=== PATIENT | male | born 1945 | race African-American/Black ===

== ENCOUNTER 2017-12-08 06:23 | Inpatient (IN) | payer MEDICARE, BC ==
[2017-12-08] VITALS (17 sets, daily range): BP systolic 110–138; BP diastolic 63–83
[~2017-12-08] VITALS: Ht 180.3 cm; Wt 89.1 kg
[~2017-12-08 06:23] MED LIST: AMLO10TA80 PO; ASPI-986 PO; ATOR20TA65 PO; BENA20TA10 PO; ISOS30TA6 PO; NITR0.4T PO; TOPXL5 PO
[2017-12-08] MEDS ORDERED: FENTANYL CITRATE/PF 50MCG/ML 2ML VIAL ONE (08:28)
[2017-12-08] MEDS ORDERED: MIDAZOLAM HCL 2 MG/2 ML VIAL ONE (08:28)
[2017-12-08] MEDS ORDERED: IOHEXOL-300 100 ML BOTTLE ONE (08:33)
[2017-12-08] MEDS ORDERED: IODIXANOL 320MG/ML 100 ML BOTTLE IV ONE ×2 (09:07→09:51)
[2017-12-08] MEDS ORDERED: LIDOCAINE HCL 1% 20ML VIAL (Pyxis) INJ ONE (09:51)
[2017-12-08] MEDS ORDERED: ASPIRIN 325MG TABLET ONE (09:52)
[2017-12-08] MEDS ORDERED: CLOPIDOGREL 75MG TABLET ONE (09:53)
[2017-12-08] MEDS ORDERED: ONDANSETRON HCL 4MG/2ML VIAL IV PRN (10:00)
[2017-12-08] MEDS ORDERED: ACETAMINOPHEN 325MG TABLET PO PRN (10:00)
[2017-12-08] MEDS ORDERED: ATROPINE SULFATE 1MG/10ML SYR IV PRN (10:00)
[2017-12-08] MEDS ORDERED: NICARDIPINE 100MCG/ML 10ML VIAL (CATH LAB) IV ONE (13:55)
[2017-12-08] MEDS ORDERED: NITROGLYCERIN 50MCG/ML 10ML VIAL (CATH LAB) IV ONE (13:55)
[2017-12-08] MEDS ORDERED: HEPARIN SODIUM 1,000 UNIT/1ML VIAL IV ONE (14:50)
[2017-12-09] VITALS (7 sets, daily range): BP systolic 116–153; BP diastolic 69–87
[2017-12-09 07:33] LABS: CHLORIDE 107 mEq/L (98-107)
[2017-12-09 07:42] LABS: BASOPHILS % 0.4 % (0.0-2.0); EOSINOPHILS % 2.2 % (0.0-5.0); HEMATOCRIT. 43.2 % (42.0-52.0); HEMOGLOBIN. 14.8 g/dL (14.0-18.0); MEAN CORPUSCULAR VOLUME 87.6 fL (80.0-94.0); MEAN PLATELET VOLUME 10.1 fl (7.4-10.4); NEUTROPHILS % 59.4 % (40.0-76.0); PLATELET 177 x1000/uL (130-400); RED BLOOD CELL COUNT 4.93 mill/uL (4.7-6.1); RED CELL DISTRIBUTION WIDTH 13.6 % (11.6-14.6)
[2017-12-09] MEDS ORDERED: CLOPIDOGREL 75MG TABLET PO SCH (09:00)
[2017-12-09] MEDS ORDERED: ASPIRIN 325MG TABLET PO SCH (09:00)
== END 2017-12-09 11:34 | disposition home or self-care (01) | DRG 251 ==
LOC: CCL 06:23 → 3WST 06:24
PROVIDERS: ADMIT Specialist; ATTEND Specialist
PROC: 4A023N7 Measurement of Cardiac Sampling and Pressure, Left Heart, Percutaneous Approach (ICD-10-PCS; principal; 2017-12-08)
PROC: B2111ZZ Fluoroscopy of Multiple Coronary Arteries using Low Osmolar Contrast (ICD-10-PCS; 2017-12-08)
PROC: 02703ZZ Dilation of Coronary Artery, One Artery, Percutaneous Approach (ICD-10-PCS; 2017-12-08)
DX: I25.10 Atherosclerotic heart disease of native coronary artery without angina pectoris (principal); E78.5 Hyperlipidemia, unspecified; I11.9 Hypertensive heart disease without heart failure; I25.2 Old myocardial infarction; Z95.5 Presence of coronary angioplasty implant and graft; Z79.899 Other long term (current) drug therapy
CPT/HCPCS: 36415; 80048; 85025; 85347; 92920; 93005; 93454; C1725; C1769; C1887; C1893; J1644; J2250; J3010; J3490; Q9967

== ENCOUNTER 2021-05-23 15:59 | Inpatient (IN) | payer MEDICARE, BC ==
[~2021-05-23] VITALS: Ht 180.3 cm; Wt 87.7 kg
[2021-05-23] VITALS (15 sets, daily range): BP systolic 103–137; BP diastolic 43–87
[~2021-05-23 15:59] MED LIST changes: -ISOS30TA6 PO; +ISOS30TA91 PO
[2021-05-23] MEDS ORDERED: ASPIRIN 325MG TABLET PO ONE (17:15)
[2021-05-23] MEDS ORDERED: NITROGLYCERIN 0.4MG TABLET SL SL PRN (17:15)
[2021-05-23 17:22] LABS: BASOPHILS % 0.2 % (0.0-2.0); EOSINOPHILS % 0.6 % (0.0-5.0); HEMATOCRIT. 44.3 % (42.0-52.0); HEMOGLOBIN. 14.7 g/dL (14.0-18.0); LYMPHOCYTES % 16.4 % (20.0-50.0); MEAN CORPUSCULAR VOLUME 87.3 fL (80.0-94.0); MEAN PLATELET VOLUME 9.4 fl (7.4-10.4); MONOCYTES % 8.2 % (2.0-8.0); NEUTROPHILS % 74.6 % (40.0-76.0); PLATELET 246 x1000/uL (130-400); RED BLOOD CELL COUNT 5.07 mill/uL (4.7-6.1); RED CELL DISTRIBUTION WIDTH 13.7 % (11.6-14.6)
[2021-05-23 17:28] LABS: CHLORIDE 110 mEq/L (98-107)
[2021-05-23 17:30] LABS: INR 1.1; PROTHROMBIN TIME 12.2 sec (9.6-11.0)
[2021-05-23] MEDS ORDERED: FENTANYL CITRATE/PF 50MCG/ML 2ML VIAL IV ONE (17:30)
[2021-05-23 17:31] LABS: ETHANOL BLOOD < 10 mg/dL
[2021-05-23] MEDS ORDERED: IOHEXOL-300 100 ML BOTTLE ONE (17:47)
[2021-05-23] MEDS ORDERED: IODIXANOL 320MG/ML 100 ML BOTTLE IV ONE ×2 (17:47→19:05)
[2021-05-23] MEDS ORDERED: LIDOCAINE HCL 1% 20ML VIAL (Pyxis) INJ ONE (17:47)
[2021-05-23] MEDS ORDERED: MIDAZOLAM HCL 2 MG/2 ML VIAL ONE (17:48)
[2021-05-23] MEDS ORDERED: FENTANYL CITRATE/PF 50MCG/ML 2ML VIAL ONE (17:48)
[2021-05-23] MEDS ORDERED: ATROPINE SULFATE 0.1MG/ML 10ML DISP.SYRIN ONE (18:19)
[2021-05-23] MEDS ORDERED: TICAGRELOR 90 MG TABLET PO ONE (19:05)
[2021-05-23] MEDS ORDERED: CARVEDILOL 3.125 MG TABLET PO NR (19:30)
[2021-05-23] MEDS ORDERED: ACETAMINOPHEN 325MG TABLET PO PRN (19:30)
[2021-05-23] MEDS ORDERED: LISINOPRIL 2.5MG TABLET PO NR (19:30)
[2021-05-23] MEDS ORDERED: ATROPINE SULFATE 1MG/10ML SYR IV PRN (19:30)
[2021-05-23] MEDS ORDERED: ONDANSETRON HCL 4MG/2ML INJ IV PRN (19:30)
[2021-05-23] MEDS ORDERED: DEXTROSE 50% WATER 50ML SYRINGE IV PRN (21:15)
[2021-05-23] MEDS: NITROGLYCERIN 0.4MG TABLET SL SL NR ×2 (21:39→21:49)
[2021-05-23] MEDS: MORPHINE SULFATE 2 MG/ML CPJ (NOT FOR IM USE) IV PRN (22:28)
[2021-05-23] MEDS ORDERED: SODIUM CHLORIDE 0.45% 1,000 ML IV ONE (22:30)
[2021-05-24] VITALS (16 sets, daily range): BP systolic 112–132; BP diastolic 53–87
[2021-05-24] MEDS: SODIUM CHLORIDE 0.45% 1,000 ML IV SCH ×2 (00:41→15:35)
[2021-05-24] MEDS: BLOOD SUGAR DIAGNOSTIC STRIP TEST SCH ×4 (06:29→20:50)
[2021-05-24 07:15] LABS: BASOPHILS % 0.2 % (0.0-2.0); EOSINOPHILS % 0.3 % (0.0-5.0); HEMATOCRIT. 42.9 % (42.0-52.0); HEMOGLOBIN. 14.6 g/dL (14.0-18.0); LYMPHOCYTES % 12.9 % (20.0-50.0); MEAN CORPUSCULAR HEMOGLOBIN 29.6 pg (28.0-32.0); MEAN CORPUSCULAR VOLUME 86.6 fL (80.0-94.0); MEAN PLATELET VOLUME 9.9 fl (7.4-10.4); MONOCYTES % 10.7 % (2.0-8.0); NEUTROPHILS % 75.9 % (40.0-76.0); PLATELET 205 x1000/uL (130-400); RED BLOOD CELL COUNT 4.95 mill/uL (4.7-6.1); RED CELL DISTRIBUTION WIDTH 13.8 % (11.6-14.6)
[2021-05-24] MEDS: INSULIN LISPRO 100 UNITS/ML SUBCUT SCH ×4 (07:18→20:50)
[2021-05-24] MEDS: MORPHINE SULFATE 2 MG/ML CPJ (NOT FOR IM USE) IV PRN (07:28)
[2021-05-24 07:29] LABS: CHLORIDE 106 mEq/L (98-107)
[2021-05-24] MEDS: ASPIRIN 325MG TABLET PO SCH (08:15)
[2021-05-24] MEDS: CLOPIDOGREL 75MG TABLET PO SCH (08:15)
[2021-05-24] MEDS ORDERED: POTASSIUM CHLORIDE 20MEQ TABLET SR PO NR (09:15)
[2021-05-24 13:27] LABS: *AMPHETAMINES SCREEN URINE NEGATIVE (NEGATIVE); CANNABINOID URINE SCREEN NEGATIVE (NEGATIVE); OPIATES URINE SCREEN PRESUMTIVE POSITIVE (NEGATIVE); PHENCYCLIDINE URINE SCREEN NEGATIVE (NEGATIVE)
[2021-05-24 13:30] LABS: *BARBITURATES SCREEN URINE NEGATIVE (NEGATIVE)
[2021-05-24 13:37] LABS: METHADONE URINE SCREEN NEGATIVE (NEGATIVE)
[2021-05-24 13:38] LABS: *COCAINE SCREEN URINE NEGATIVE (NEGATIVE)
[2021-05-24 13:39] LABS: *BENZODIAZEPINES SCREEN URINE PRESUMTIVE POSITIVE (NEGATIVE)
[2021-05-24] MEDS ORDERED: NALOXONE HCL 0.4MG/ML VIAL IV PRN (16:15)
[2021-05-24] MEDS: ATORVASTATIN CALCIUM 20MG TABLET PO SCH (21:03)
[2021-05-25] VITALS (11 sets, daily range): BP systolic 119–133; BP diastolic 77–88
[2021-05-25] MEDS: BLOOD SUGAR DIAGNOSTIC STRIP TEST SCH ×4 (06:02→21:31)
[2021-05-25] MEDS: SODIUM CHLORIDE 0.45% 1,000 ML IV SCH (06:02)
[2021-05-25] MEDS: INSULIN LISPRO 100 UNITS/ML SUBCUT SCH ×4 (06:14→21:40)
[2021-05-25 07:50] LABS: BASOPHILS % 0.2 % (0.0-2.0); EOSINOPHILS % 0.7 % (0.0-5.0); HEMATOCRIT. 42.4 % (42.0-52.0); MEAN CORPUSCULAR HEMOGLOBIN 30.2 pg (28.0-32.0); MEAN CORPUSCULAR VOLUME 85.6 fL (80.0-94.0); MEAN PLATELET VOLUME 9.6 fl (7.4-10.4); MONOCYTES % 11.5 % (2.0-8.0); NEUTROPHILS % 70.6 % (40.0-76.0); PLATELET 179 x1000/uL (130-400); RED BLOOD CELL COUNT 4.95 mill/uL (4.7-6.1); RED CELL DISTRIBUTION WIDTH 13.9 % (11.6-14.6)
[2021-05-25 08:04] LABS: CHLORIDE 111 mEq/L (98-107)
[2021-05-25] MEDS: CLOPIDOGREL 75MG TABLET PO SCH (08:27)
[2021-05-25] MEDS: ASPIRIN 325MG TABLET PO SCH (08:27)
[2021-05-25] MEDS ORDERED: POTASSIUM CHLORIDE 20MEQ TABLET SR PO NR (12:00)
[2021-05-25] MEDS ORDERED: DOCUSATE SODIUM 250MG CAPSULE PO PRN (12:00)
[2021-05-25] MEDS: LOSARTAN POTASSIUM 25 MG TABLET PO SCH (13:29)
[2021-05-25] MEDS: CARVEDILOL 3.125 MG TABLET PO SCH (21:39)
[2021-05-25] MEDS: ATORVASTATIN CALCIUM 20MG TABLET PO SCH (21:39)
[2021-05-26] VITALS (12 sets, daily range): BP systolic 114–146; BP diastolic 68–95
[2021-05-26] MEDS: SODIUM CHLORIDE 0.45% 1,000 ML IV SCH ×2 (01:00→18:30)
[2021-05-26] MEDS: BLOOD SUGAR DIAGNOSTIC STRIP TEST SCH ×4 (06:18→21:17)
[2021-05-26] MEDS: INSULIN LISPRO 100 UNITS/ML SUBCUT SCH ×4 (06:18→21:00)
[2021-05-26 08:00] LABS: BASOPHILS % 0.4 % (0.0-2.0); EOSINOPHILS % 1.4 % (0.0-5.0); HEMATOCRIT. 44.9 % (42.0-52.0); HEMOGLOBIN. 15.9 g/dL (14.0-18.0); LYMPHOCYTES % 19.2 % (20.0-50.0); MEAN CORPUSCULAR HEMOGLOBIN 30.7 pg (28.0-32.0); MEAN CORPUSCULAR VOLUME 86.8 fL (80.0-94.0); MEAN PLATELET VOLUME 10.2 fl (7.4-10.4); MONOCYTES % 11.8 % (2.0-8.0); NEUTROPHILS % 67.2 % (40.0-76.0); PLATELET 102 x1000/uL (130-400); RED BLOOD CELL COUNT 5.17 mill/uL (4.7-6.1); RED CELL DISTRIBUTION WIDTH 13.4 % (11.6-14.6)
[2021-05-26 08:04] LABS: CHLORIDE 110 mEq/L (98-107)
[2021-05-26] MEDS: ASPIRIN 325MG TABLET PO SCH (08:18)
[2021-05-26] MEDS: CARVEDILOL 3.125 MG TABLET PO SCH ×2 (08:18→21:18)
[2021-05-26] MEDS: LOSARTAN POTASSIUM 25 MG TABLET PO SCH (08:18)
[2021-05-26] MEDS: CLOPIDOGREL 75MG TABLET PO SCH (08:18)
[2021-05-26] MEDS ORDERED: FUROSEMIDE 40MG TABLET PO NR (11:15)
[2021-05-26] MEDS ORDERED: POTASSIUM CHLORIDE 10MEQ TABLET SR PO NR (11:15)
[2021-05-26] MEDS: ATORVASTATIN CALCIUM 20MG TABLET PO SCH (21:17)
[2021-05-27] VITALS (7 sets, daily range): BP systolic 118–134; BP diastolic 71–82
[2021-05-27] MEDS: BLOOD SUGAR DIAGNOSTIC STRIP TEST SCH (06:23)
[2021-05-27] MEDS: INSULIN LISPRO 100 UNITS/ML SUBCUT SCH (06:23)
[2021-05-27 06:59] LABS: CHLORIDE 110 mEq/L (98-107)
[2021-05-27 07:08] LABS: BASOPHILS % 0.5 % (0.0-2.0); EOSINOPHILS % 2.2 % (0.0-5.0); HEMATOCRIT. 42.1 % (42.0-52.0); HEMOGLOBIN. 14.5 g/dL (14.0-18.0); LYMPHOCYTES % 18.6 % (20.0-50.0); MEAN CORPUSCULAR HEMOGLOBIN 29.8 pg (28.0-32.0); MEAN CORPUSCULAR VOLUME 86.6 fL (80.0-94.0); MEAN PLATELET VOLUME 9.9 fl (7.4-10.4); MONOCYTES % 10.5 % (2.0-8.0); NEUTROPHILS % 68.2 % (40.0-76.0); PLATELET 175 x1000/uL (130-400); RED BLOOD CELL COUNT 4.86 mill/uL (4.7-6.1); RED CELL DISTRIBUTION WIDTH 13.2 % (11.6-14.6)
[2021-05-27] MEDS: ASPIRIN 325MG TABLET PO SCH (08:26)
[2021-05-27] MEDS: CLOPIDOGREL 75MG TABLET PO SCH (08:26)
[2021-05-27] MEDS: LOSARTAN POTASSIUM 25 MG TABLET PO SCH (08:27)
[2021-05-27] MEDS: CARVEDILOL 3.125 MG TABLET PO SCH (08:27)
[2021-05-27] MEDS ORDERED: POTASSIUM CHLORIDE 10MEQ TABLET SR PO SCH (09:00)
[2021-05-27] MEDS ORDERED: FUROSEMIDE 40MG TABLET PO SCH (09:00)
== END 2021-05-27 13:33 | disposition home health service (06) | DRG 247 ==
LOC: ER 15:59 → CCL 20:30 → 3WST 21:25
PROVIDERS: ADMIT Family Medicine Adult Medicine; ATTEND Family Medicine Adult Medicine
PROC: 027034Z Dilation of Coronary Artery, One Artery with Drug-eluting Intraluminal Device, Percutaneous Approach (ICD-10-PCS; principal; 2021-05-23)
PROC: B211YZZ Fluoroscopy of Multiple Coronary Arteries using Other Contrast (ICD-10-PCS; 2021-05-23)
DX: I21.09 ST elevation (STEMI) myocardial infarction involving other coronary artery of anterior wall (principal); I48.92 Unspecified atrial flutter; I47.2 Ventricular tachycardia; E78.5 Hyperlipidemia, unspecified; I10 Essential (primary) hypertension; I25.10 Atherosclerotic heart disease of native coronary artery without angina pectoris; R06.00 Dyspnea, unspecified; E11.9 Type 2 diabetes mellitus without complications; B19.20 Unspecified viral hepatitis C without hepatic coma; Z20.822 Contact with and (suspected) exposure to COVID-19; I49.3 Ventricular premature depolarization; K59.00 Constipation, unspecified; I25.5 Ischemic cardiomyopathy; Z79.899 Other long term (current) drug therapy; Z82.49 Family history of ischemic heart disease and other diseases of the circulatory system; Z85.46 Personal history of malignant neoplasm of prostate; Z87.891 Personal history of nicotine dependence; Z92.3 Personal history of irradiation; Z95.5 Presence of coronary angioplasty implant and graft; Z79.82 Long term (current) use of aspirin; I25.2 Old myocardial infarction
CPT/HCPCS: 36415; 71045; 80048; 80053; 80061; 80305; 80320; 82962; 83036; 83605; 83735; 83880; 84484; 85025; 85347; 87426; 92941; 93005; 93306; 93458; 99291; C1725; C1760; C1769; C1874; C1887; C1893; J0461; J1644; J1815; J2250; J2270; J2405; J3010; J3490; Q9967; G0480; J8499

== ENCOUNTER 2024-10-21 07:58 | Emergency (ER) | payer BC, MEDICARE ==
[~2024-10-21] VITALS: Ht 172.7 cm; Wt 54.0 kg
[~2024-10-21 07:58] MED LIST changes: -AMLO10TA80 PO; -ASPI-986 PO; -ATOR20TA65 PO; +BENA-8 PO; -BENA20TA10 PO; -ISOS30TA91 PO; -TOPXL5 PO
[2024-10-21 08:04] VITALS: O2SAT 99
[2024-10-21] MEDS: TRANEXAMIC ACID 1,000MG/10ML TP ONE (08:45)
[2024-10-21] MEDS ORDERED: AMOXICILLIN/POTASSIUM CLAVULANATE 875/125MG TAB PO ONE (08:45)
[2024-10-21 08:52] LABS: BASOPHILS % 0.5 % (0.0-2.0); HEMATOCRIT. 44.5 % (42.0-52.0); HEMOGLOBIN. 14.9 g/dL (14.0-18.0); LYMPHOCYTES % 15.8 % (20.0-50.0); MEAN CORPUSCULAR HGB CONC 33.5 g/dL (31.0-37.0); MEAN CORPUSCULAR VOLUME 89.4 fL (80.0-94.0); MEAN PLATELET VOLUME 9.6 fl (7.4-10.4); MONOCYTES % 9.9 % (2.0-8.0); NEUTROPHILS % 71.8 % (40.0-76.0); PLATELET 193 x1000/uL (130-400); RED BLOOD CELL COUNT 4.98 mill/uL (4.7-6.1); RED CELL DISTRIBUTION WIDTH 14.1 % (11.6-14.6)
[2024-10-21 09:03] LABS: INR 1.1; PARTIAL THROMBOPLASTIN TIME 24.8 sec (23.4-31.0); PROTHROMBIN TIME 11.4 sec (9.6-11.0)
[2024-10-21 09:05] LABS: CARBON DIOXIDE 28 mEq/L (21-32); CHLORIDE 109 mEq/L (98-107); SODIUM 139 mEq/L (136-145)
[2024-10-21 09:06] LABS: CALCIUM 8.6 mg/dL (8.7-10.4)
[2024-10-21 09:11] LABS: CREATININE 0.8 mg/dL (0.6-1.3); GLUCOSE 121 mg/dL (70-105); UREA NITROGEN BLOOD 14 mg/dL (9-23)
[2024-10-21] MEDS ORDERED: AMOX1TAB16 MT (09:26)
[2024-10-21] MEDS ORDERED: CHLO473M2 MT (09:28)
[2024-10-21] MEDS ORDERED: ACET-2708 MT (09:28)
[2024-10-21] MEDS: AMOXICILLIN/POTASSIUM CLAVULANATE 875/125MG TAB PO NR (09:38)
[2024-10-21 10:00] VITALS: BP 119/63; PULSE 67; RESP 18; TEMP 37; O2SAT 99
== END 2024-10-21 10:03 | disposition home or self-care (01) ==
LOC: ER 07:58
DX: K05.10 Chronic gingivitis, plaque induced (principal); I10 Essential (primary) hypertension; Z98.890 Other specified postprocedural states; Z79.02 Long term (current) use of antithrombotics/antiplatelets; Z79.01 Long term (current) use of anticoagulants; Z79.899 Other long term (current) drug therapy
CPT/HCPCS: 36415; 80048; 85025; 99283

== ENCOUNTER 2024-11-08 07:37 | Inpatient (IN) | payer MEDICARE ==
[~2024-11-08] VITALS: Ht 175.3 cm; Wt 90.3 kg
[2024-11-08] VITALS (94 sets, daily range): BP systolic 42–220; BP diastolic 30–131; PULSE 69–176; RESP 14–35; TEMP 35.6–37; O2SAT 95–100
[~2024-11-08 07:37] MED LIST changes: +ACET-2708 MT; +AMOX1TAB16 MT; +CHLO473M2 MT
[2024-11-08] MEDS ORDERED: MANNITOL 12.5G (25%) VIAL 50ML IV ONE (08:00)
[2024-11-08 08:27] LABS: BASOPHILS % 0.4 % (0.0-2.0); HEMOGLOBIN. 16.6 g/dL (14.0-18.0); LYMPHOCYTES % 15.3 % (20.0-50.0); MEAN CORPUSCULAR HEMOGLOBIN 31.2 pg (28.0-32.0); MEAN CORPUSCULAR HGB CONC 34.7 g/dL (31.0-37.0); MEAN CORPUSCULAR VOLUME 89.8 fL (80.0-94.0); MEAN PLATELET VOLUME 9.7 fl (7.4-10.4); MONOCYTES % 7.8 % (2.0-8.0); NEUTROPHILS % 74.5 % (40.0-76.0); PLATELET 239 x1000/uL (130-400); RED BLOOD CELL COUNT 5.34 mill/uL (4.7-6.1); RED CELL DISTRIBUTION WIDTH 14.2 % (11.6-14.6); WHITE BLOOD COUNT 8.2 x1000/uL (4.5-11.0)
[2024-11-08] MEDS: ETOMIDATE 2MG/ML 10ML VIAL IV ONE (08:43)
[2024-11-08] MEDS: SUCCINYLCHOLINE CHLORIDE 200MG/10ML IV ONE (08:43)
[2024-11-08] MEDS: LEVETIRACETAM 1000MG PREMIX 100 ML IV ONE (08:54)
[2024-11-08] MEDS: DESMOPRESSIN ACETATE IVPB 25 MCG in SODIUM CHLORIDE 0.9% 50 ML IV ONE (08:56)
[2024-11-08] MEDS: PROPOFOL 10MG/ML 100ML 100 ML IV ONE (09:12)
[2024-11-08] MEDS ORDERED: NITR0.4T49 SL (09:19)
[2024-11-08] MEDS ORDERED: ATOR20TA65 PO (09:19)
[2024-11-08 09:28] LABS: CHLORIDE 107 mEq/L (98-107); POTASSIUM 4.3 mEq/L (3.5-5.1); SODIUM 140 mEq/L (136-145)
[2024-11-08 09:29] LABS: CARBON DIOXIDE 23 mEq/L (21-32)
[2024-11-08 09:30] LABS: CALCIUM 8.9 mg/dL (8.7-10.4)
[2024-11-08 09:32] LABS: BG BASE EXCESS -5.5 mmol/L (-2.0-3.0); BG CARBOXYHEMOGLOBIN 0.4 % (0.5-1.5); BG DEOXYHEMOGLOBIN 0.2 % (0.0-5.0); BG FRACTION INSPIRED OXYGEN 100; BG HCO3 ACT 19.1 mmol/L (21.0-28.0); BG METHEMOGLOBIN 0.3 % (0.5-1.5); BG OXYGEN SATURATION 99.8 % (94.0-98.0); BG OXYHEMOGLOBIN 99.1 % (94.0-98.0); BG PCO2 34.9 mmHg (35.0-48.0); BG PH 7.355 (7.350-7.450); BG PO2 381.3 mmHg (83.0-108.0); BG SAMPLE SITE RIGHT RADIAL; BG TOTAL HEMOGLOBIN 16.5 g/dL (13.5-17.5); BG VENT MODE VENT - AC
[2024-11-08 09:32] LABS: INR 1.1; PROTHROMBIN TIME 11.7 sec (9.6-11.0)
[2024-11-08 09:34] LABS: CREATININE 0.9 mg/dL (0.6-1.3); GLUCOSE 154 mg/dL (70-105); UREA NITROGEN BLOOD 15 mg/dL (9-23)
[2024-11-08 09:35] LABS: ETHANOL BLOOD < 10 mg/dL (<10); TROPONIN I HIGH SENSITIVITY 11 ng/L (3.0-53)
[2024-11-08] MEDS ORDERED: MANNITOL 20% (20GM/100ML) BAG 500ML PREMIX IV ONE (09:45)
[2024-11-08] MEDS ORDERED: IPRATROPIUM/ALBUTEROL 0.5-3(2.5)MG/3ML NEB HHN PRN (09:45)
[2024-11-08] MEDS ORDERED: ACETAMINOPHEN 325MG TABLET PO PRN ×2 (09:45)
[2024-11-08] MEDS ORDERED: CLONIDINE 0.1MG TABLET PO PRN (09:45)
[2024-11-08] MEDS ORDERED: HYDRALAZINE 20MG/ML VIAL IV PRN (09:45)
[2024-11-08] MEDS ORDERED: DEXTROSE 50% WATER 50ML SYRINGE IV PRN (09:45)
[2024-11-08] MEDS ORDERED: ONDANSETRON HCL 4MG/2ML INJ IV PRN (09:45)
[2024-11-08 10:09] LABS: CLARITY URINE CLEAR (CLEAR); COLOR URINE ORANGE (YELLOW); GLUCOSE URINE 3+ (NEGATIVE); KETONES URINE NEGATIVE (NEGATIVE); LEUKOCYTE ESTERASE URINE NEGATIVE (NEGATIVE); NITRITE URINE NEGATIVE (NEGATIVE); OCCULT BLOOD URINE 3+ (NEGATIVE); PH URINE 7.5 (4.5-8.0); PROTEIN URINE TRACE (NEGATIVE); SPECIFIC GRAVITY URINE 1.023 (1.005-1.030); UROBILINOGEN URINE 0.2 E.U./dL (0.2-1.0)
[2024-11-08] MEDS: MANNITOL 20% 250 ML IV NR (10:13)
[2024-11-08 10:25] LABS: HYALINE CASTS URINE 0-5 /lpf; SQUAMOUS EPITHELIAL CELL URINE NONE SEEN /lpf (RARE/1+)
[2024-11-08] MEDS: LIDOCAINE HCL 1% 10 MG/ML 10ML VIAL ONE (10:26)
[2024-11-08] MEDS: LABETALOL 5MG/ML 4ML INJ IV ONE (10:26)
[2024-11-08 10:29] LABS: RBC URINE 50-100 /hpf (0-2)
[2024-11-08 10:30] LABS: MUCUS URINE TRACE /lpf (NONE/TRACE); RENAL EPITHELIAL CELLS URINE FEW /lpf
[2024-11-08] MEDS ORDERED: NICARDIPINE 50 MG in SODIUM CHLORIDE 0.9% 230 ML IV PRN ×2 (10:30→11:00)
[2024-11-08 10:32] LABS: BACTERIA URINE NONE SEEN; WBC URINE NONE SEEN /hpf (0-2)
[2024-11-08 11:11] LABS: *AMPHETAMINES SCREEN URINE NEGATIVE (NEGATIVE)
[2024-11-08 11:12] LABS: *BARBITURATES SCREEN URINE NEGATIVE (NEGATIVE); *BENZODIAZEPINES SCREEN URINE NEGATIVE (NEGATIVE); *COCAINE SCREEN URINE NEGATIVE (NEGATIVE); CANNABINOID URINE SCREEN NEGATIVE (NEGATIVE); ECSTASY MDMA SCREEN URINE NEGATIVE (NEGATIVE); METHADONE URINE SCREEN NEGATIVE (NEGATIVE); OPIATES URINE SCREEN NEGATIVE (NEGATIVE); PHENCYCLIDINE URINE SCREEN NEGATIVE (NEGATIVE)
[2024-11-08] MEDS: BLOOD SUGAR DIAGNOSTIC STRIP TEST SCH (11:30)
[2024-11-08] MEDS ORDERED: MORPHINE SULFATE 4 MG/ML INJ (FOR IV/IM USE) IV SCH (11:30)
[2024-11-08] MEDS: MORPHINE SULFATE 4 MG/ML INJ (FOR IV/IM USE) IV SCH (11:52)
[2024-11-08] MEDS: SODIUM CHLORIDE 0.9% 500 ML IV SCH (12:30)
[2024-11-08] MEDS: DEXT 5%/LACTATED RINGERS 1,000 ML IV SCH (12:39)
[2024-11-08] MEDS ORDERED: NALOXONE HCL 0.4MG/ML VIAL IV PRN (12:45)
[2024-11-08] MEDS: INSULIN LISPRO 100 UNITS/ML SUBCUT SCH (13:20)
[2024-11-08] MEDS: NICARDIPINE 100 MG in SODIUM CHLORIDE 0.9% 60 ML IV PRN (13:30)
[2024-11-08] MEDS ORDERED: PROPOFOL 10MG/ML 100ML 100 ML IV PRN (13:45)
[2024-11-08] MEDS ORDERED: CEFAZOLIN SODIUM 1000MG/VIAL IV SCH (14:00)
[2024-11-08] MEDS: AMIODARONE 150MG/100ML D5W 100 ML IV SCH (15:08)
[2024-11-08] MEDS ORDERED: AMIODARONE HCL 900 MG in DEXT 5% WATER 482 ML IV SCH (15:15)
[2024-11-08] MEDS: AMIODARONE 360MG/200ML D5W PREMIX IV SCH (15:25)
[2024-11-08] MEDS: NOREPINEPHRINE 8MG/250ML PMX 250 ML IV PRN (16:11)
[2024-11-08] MEDS: SODIUM CHLORIDE 0.9% 250 ML IV ONE (16:11)
[2024-11-08 17:09] LABS: BG BASE EXCESS -0.2 mmol/L (-2.0-3.0); BG CARBOXYHEMOGLOBIN 1.2 % (0.5-1.5); BG FRACTION INSPIRED OXYGEN 40; BG HCO3 ACT 22.1 mmol/L (21.0-28.0); BG METHEMOGLOBIN 0.3 % (0.5-1.5); BG OXYGEN SATURATION 94.9 % (94.0-98.0); BG OXYHEMOGLOBIN 93.5 % (94.0-98.0); BG PCO2 30.4 mmHg (35.0-48.0); BG PH 7.479 (7.350-7.450); BG PO2 69.4 mmHg (83.0-108.0); BG SAMPLE SITE RIGHT RADIAL; BG TOTAL HEMOGLOBIN 16.4 g/dL (13.5-17.5); BG VENT MODE VENT - AC
[2024-11-08 17:25] LABS: BASOPHILS % 0.2 % (0.0-2.0); EOSINOPHILS % 0.4 % (0.0-5.0); HEMATOCRIT. 48.6 % (42.0-52.0); LYMPHOCYTES % 11.5 % (20.0-50.0); MEAN CORPUSCULAR HEMOGLOBIN 29.7 pg (28.0-32.0); MEAN CORPUSCULAR HGB CONC 32.9 g/dL (31.0-37.0); MEAN PLATELET VOLUME 9.4 fl (7.4-10.4); MONOCYTES % 6.9 % (2.0-8.0); PLATELET 249 x1000/uL (130-400); RED BLOOD CELL COUNT 5.41 mill/uL (4.7-6.1)
[2024-11-08 17:34] LABS: CHLORIDE 110 mEq/L (98-107); POTASSIUM 3.5 mEq/L (3.5-5.1); SODIUM 145 mEq/L (136-145)
[2024-11-08 17:35] LABS: CARBON DIOXIDE 22 mEq/L (21-32)
[2024-11-08] MEDS: CEFAZOLIN 1000MG PREMIX 50 ML IV SCH (17:35)
[2024-11-08 17:40] LABS: CREATININE 1.2 mg/dL (0.6-1.3); GLUCOSE 171 mg/dL (70-105); UREA NITROGEN BLOOD 16 mg/dL (9-23)
[2024-11-08 17:42] LABS: PHOSPHORUS 2.6 mg/dL (2.5-4.9)
[2024-11-08] MEDS: LEVETIRACETAM 500MG PREMIX 100 ML IV SCH (20:57)
[2024-11-08] MEDS ORDERED: LEVETIRACETAM 500MG in NACL 100ML PREMIX IV SCH (21:00)
[2024-11-08] MEDS: MORPHINE SULFATE 4 MG/ML INJ (FOR IV/IM USE) IV PRN (21:15)
[2024-11-08] MEDS: NOREPINEPHRINE 32 MG in DEXT 5% WATER 218 ML IV PRN (22:00)
[2024-11-09] VITALS (122 sets, daily range): BP systolic 46–185; BP diastolic 25–155; PULSE 63–179; RESP 18–70; TEMP 36.4–39.4; O2SAT 96–100
[2024-11-09] MEDS ORDERED: POTA-203 PO (01:22)
[2024-11-09] MEDS ORDERED: CARV3.1242 PO (01:22)
[2024-11-09] MEDS ORDERED: CLOP-31 PO (01:22)
[2024-11-09] MEDS ORDERED: ASPI-1497 PO (01:22)
[2024-11-09] MEDS ORDERED: FURO-151 PO (01:22)
[2024-11-09 05:22] LABS: BASOPHILS % 0.2 % (0.0-2.0); EOSINOPHILS % 1.8 % (0.0-5.0); HEMATOCRIT. 47.3 % (42.0-52.0); HEMOGLOBIN. 15.5 g/dL (14.0-18.0); MEAN CORPUSCULAR HEMOGLOBIN 30.2 pg (28.0-32.0); MEAN CORPUSCULAR HGB CONC 32.8 g/dL (31.0-37.0); MEAN CORPUSCULAR VOLUME 92.2 fL (80.0-94.0); MEAN PLATELET VOLUME 9.5 fl (7.4-10.4); MONOCYTES % 12.9 % (2.0-8.0); NEUTROPHILS % 68.1 % (40.0-76.0); PLATELET 206 x1000/uL (130-400); RED BLOOD CELL COUNT 5.14 mill/uL (4.7-6.1); RED CELL DISTRIBUTION WIDTH 15.1 % (11.6-14.6); WHITE BLOOD COUNT 13.7 x1000/uL (4.5-11.0)
[2024-11-09 05:25] LABS: CHLORIDE 113 mEq/L (98-107); POTASSIUM 3.4 mEq/L (3.5-5.1); SODIUM 151 mEq/L (136-145)
[2024-11-09 05:26] LABS: CALCIUM 9.9 mg/dL (8.7-10.4); CARBON DIOXIDE 23 mEq/L (21-32)
[2024-11-09 05:31] LABS: CREATININE 1.4 mg/dL (0.6-1.3); GLUCOSE 133 mg/dL (70-105); TRIGLYCERIDE 77 mg/dL (0-150)
[2024-11-09 05:32] LABS: LDL CHOLESTEROL 58 mg/dL (5-100); UREA NITROGEN BLOOD 17 mg/dL (9-23)
[2024-11-09 05:33] LABS: CHOLESTEROL 127 mg/dL (<200); HDL CHOLESTEROL 48 mg/dL (>55)
[2024-11-09 05:35] LABS: T4 FREE 0.85 ng/dL (0.89-1.76)
[2024-11-09 05:36] LABS: THYROID STIMULATING HORMONE 0.77 uIU/mL (0.55-4.78)
[2024-11-09] MEDS: IOHEXOL-350 100 ML BOTTLE ONE (07:59)
[2024-11-09] MEDS: LIDOCAINE 1%/EPI 1:200,000 10 ML VIAL IJ SCH (07:59)
[2024-11-09] MEDS: KCL 20MEQ/100ML PREMIX 100 ML IV NR (08:19)
[2024-11-09] MEDS: MAGNESIUM 2 G PREMIX 50 ML IV NR (08:19)
[2024-11-09] MEDS: DEXT 5%/0.45% NACL 1000ML 1,000 ML IV SCH (09:09)
[2024-11-09 09:22] LABS: BG BASE EXCESS -0.7 mmol/L (-2.0-3.0); BG CARBOXYHEMOGLOBIN 0.7 % (0.5-1.5); BG DEOXYHEMOGLOBIN 1.7 % (0.0-5.0); BG FRACTION INSPIRED OXYGEN 40; BG HCO3 ACT 21.8 mmol/L (21.0-28.0); BG OXYGEN SATURATION 98.3 % (94.0-98.0); BG OXYHEMOGLOBIN 97.6 % (94.0-98.0); BG PCO2 30.9 mmHg (35.0-48.0); BG PH 7.467 (7.350-7.450); BG PO2 99.4 mmHg (83.0-108.0); BG SAMPLE SITE RIGHT RADIAL; BG TOTAL HEMOGLOBIN 16.5 g/dL (13.5-17.5); BG TOTAL RESPIRATORY RATE 24 b/min; BG VENT MODE VENT - AC
[2024-11-09] MEDS ORDERED: MANNITOL 20% (20GM/100ML) BAG 500ML PREMIX IV SCH (14:00)
[2024-11-09] MEDS: MANNITOL 20% 100 ML IV NR (14:29)
[2024-11-09] MEDS ORDERED: ACETAMINOPHEN 1000MG/100ML 100 ML IV ONE (18:30)
[2024-11-09] MEDS ORDERED: DILTIAZEM HCL 125 MG in DEXT 5% WATER 100 ML IV PRN (18:30)
[2024-11-09] MEDS: DILTIAZEM HCL 5MG/ML 5ML VIAL IV SCH (18:34)
[2024-11-09] MEDS: ACETAMINOPHEN 1000MG/100ML 100 ML IV SCH (18:39)
[2024-11-09] MEDS: ALBUMIN HUMAN 25GM/500ML (5%) IV SCH (19:00)
[2024-11-09] MEDS: VASOPRESSIN 20 UNIT in SODIUM CHLORIDE 0.9% 99 ML IV PRN (19:21)
[2024-11-09] MEDS: PHENYLEPHRINE 100 MG in DEXT 5% WATER 240 ML IV PRN (19:21)
[2024-11-09] MEDS: SODIUM CHLORIDE 0.45% 1,000 ML IV ONE (20:47)
[2024-11-09 21:33] LABS: CHLORIDE 112 mEq/L (98-107); POTASSIUM 4.3 mEq/L (3.5-5.1); SODIUM 146 mEq/L (136-145)
[2024-11-09 21:34] LABS: CALCIUM 10.4 mg/dL (8.7-10.4); CARBON DIOXIDE 21 mEq/L (21-32)
[2024-11-09 21:39] LABS: GLUCOSE 157 mg/dL (70-105); UREA NITROGEN BLOOD 20 mg/dL (9-23)
[2024-11-10] VITALS (135 sets, daily range): BP systolic 42–181; BP diastolic 10–152; PULSE 74–210; RESP 15–64; TEMP 36.5–36.9; O2SAT 74–100
[2024-11-10 06:13] LABS: HEMATOCRIT 44.8 % (42.0-52.0); HEMOGLOBIN 14.8 g/dL (14.0-18.0); MEAN CORPUSCULAR HEMOGLOBIN 30.3 pg (28.0-32.0); PLATELET 154 x1000/uL (130-400); RED BLOOD CELL COUNT 4.88 mill/uL (4.7-6.1); RED CELL DISTRIBUTION WIDTH 15.3 % (11.6-14.6)
[2024-11-10 06:21] LABS: CARBON DIOXIDE 24 mEq/L (21-32); CHLORIDE 111 mEq/L (98-107); POTASSIUM 3.8 mEq/L (3.5-5.1); SODIUM 150 mEq/L (136-145)
[2024-11-10 06:22] LABS: CALCIUM 9.6 mg/dL (8.7-10.4)
[2024-11-10 06:27] LABS: CREATININE 1.6 mg/dL (0.6-1.3); GLUCOSE 124 mg/dL (70-105); UREA NITROGEN BLOOD 22 mg/dL (9-23)
[2024-11-10 06:29] LABS: PHOSPHORUS 4.4 mg/dL (2.5-4.9)
[2024-11-10 06:32] LABS: T4 FREE 0.74 ng/dL (0.89-1.76)
[2024-11-10] MEDS: EPINEPHRINE 10 MG in SODIUM CHLORIDE 0.9% 240 ML IV PRN (11:40)
[2024-11-10] MEDS ORDERED: EPINEPHRINE 20 MG in SODIUM CHLORIDE 0.9% 230 ML IV PRN (14:30)
[2024-11-10] MEDS: EPINEPHRINE 20 MG in SODIUM CHLORIDE 0.9% 480 ML IV PRN (21:35)
[2024-11-11] VITALS (53 sets, daily range): BP systolic 50–106; BP diastolic 40–76; PULSE 0–126; RESP 20; TEMP 36.2–37.7; O2SAT 91–98
== END 2024-11-11 14:30 | DRG 23 ==
LOC: ER 07:37 → MICUNO 09:20 → EDBEDREQ 09:25 → ENRESERV 10:28
PROVIDERS: ADMIT Internal Medicine; ATTEND Internal Medicine
PROC: 009600Z Drainage of Cerebral Ventricle with Drainage Device, Open Approach (ICD-10-PCS; principal; 2024-11-08)
PROC: 02HV33Z Insertion of Infusion Device into Superior Vena Cava, Percutaneous Approach (ICD-10-PCS; 2024-11-08)
PROC: B548ZZA Ultrasonography of Superior Vena Cava, Guidance (ICD-10-PCS; 2024-11-08)
PROC: 5A1945Z Respiratory Ventilation, 24-96 Consecutive Hours (ICD-10-PCS; 2024-11-08)
PROC: 0BH17EZ Insertion of Endotracheal Airway into Trachea, Via Natural or Artificial Opening (ICD-10-PCS; 2024-11-08)
PROC: 5A12012 Performance of Cardiac Output, Single, Manual (ICD-10-PCS; 2024-11-08)
PROC: 5A12012 Performance of Cardiac Output, Single, Manual (ICD-10-PCS; 2024-11-09)
PROC: 5A12012 Performance of Cardiac Output, Single, Manual (ICD-10-PCS; 2024-11-10)
DX: G93.41 Metabolic encephalopathy; J96.00 Acute respiratory failure, unspecified whether with hypoxia or hypercapnia; G91.9 Hydrocephalus, unspecified; E87.0 Hyperosmolality and hypernatremia; I16.1 Hypertensive emergency; N17.9 Acute kidney failure, unspecified; I25.10 Atherosclerotic heart disease of native coronary artery without angina pectoris; I48.0 Paroxysmal atrial fibrillation; Z66 Do not resuscitate; I25.5 Ischemic cardiomyopathy; I46.9 Cardiac arrest, cause unspecified; E78.5 Hyperlipidemia, unspecified; E87.6 Hypokalemia; E83.42 Hypomagnesemia; E11.22 Type 2 diabetes mellitus with diabetic chronic kidney disease; I95.9 Hypotension, unspecified; I12.9 Hypertensive chronic kidney disease with stage 1 through stage 4 chronic kidney disease, or unspecified chronic kidney disease; N18.9 Chronic kidney disease, unspecified; I25.2 Old myocardial infarction; Z95.5 Presence of coronary angioplasty implant and graft; Z79.01 Long term (current) use of anticoagulants; Z79.02 Long term (current) use of antithrombotics/antiplatelets; Z79.899 Other long term (current) drug therapy; Z86.73 Personal history of transient ischemic attack (TIA), and cerebral infarction without residual deficits
CPT/HCPCS: 31500; 31720; 36415; 36573; 36600; 70496; 70498; 71045; 78610; 80048; 80061; 80305; 80320; 81003; 82375; 82805; 82962; 83036; 83735; 84100; 84439; 84443; 84484; 85025; 85027; 92950; 93005; 93306; 94003; 94070; 94664; 99291; A4606; A9500; C1725; J0282; J0690; J1815; J1953; J2003; J2150; J2270; J2371; J2597; J2704; J3475; J3480; J3490; J7040; J7050; J7060; J7121; P9041; Q9967; A5200; G0480; J0131